=== PATIENT | male | born 1970 | race Caucasian/White ===

== ENCOUNTER 2024-08-01 13:24 | Emergency (ER) | payer BC, SELFPAY ==
[2024-08-01 13:31] VITALS: BP 146/86; PULSE 69; RESP 16; TEMP 36.9; O2SAT 96; BMI 34.5
--- NOTE | 2024-08-01 13:55 | DI.US.S_ITS ---
PROCEDURE: US PERIPH VENOUS LOW EXTREM RT INDICATIONS: r leg pain TECHNIQUE: Real-time imaging, as well as color and pulse Doppler interrogation, were performed of the lower extremity deep veins from the inguinal ligament to the popliteal fossa, with documentation of the visualized calf veins. COMPARISON: None. FINDINGS: The common femoral, femoral, popliteal, and the visualized calf veins are normally compressible, and free of intraluminal thrombus. Color and pulse Doppler demonstrate normal phasic intraluminal flow. There is normal augmentation response to distal compression maneuver. Small free fluid anterior and lateral to the right knee. Calcifications adjacent to the medial knee. IMPRESSION: No findings of lower extremity deep venous thrombosis. Dictated by: Christofer Hernandez M.D. on 08/01/2024 at 15:03 Approved by: Christofer Hernandez M.D. on 08/01/2024 at 15:04
--- NOTE | 2024-08-01 13:58 | ED.EXTPRO ---
HPI - Extremity Problem <Arabella Allred PA-C - Last Filed: 08/01/24 15:54> General Chief complaint: Extremity Problem,Nontraumatic Stated complaint: hx knee surgery, right leg locked up 3 days Time Seen by Provider: 08/01/24 13:37 Source: patient Mode of arrival: Wheelchair History of Present Illness HPI Narrative: 53-year-old male status post a right meniscus repair in February 2024 presents to the ED with 3 days of right-sided leg pain. Patient localizes the pain to the posterior aspect of the leg from just below the knee to just above the knee. Patient denies any trauma. No numbness, tingling, weakness. Patient states he is having trouble straightening his leg due to pain. Patient endorses a distant history of gout about 10 years ago. No history of DVTs. Patient is a prior smoker, has smoked for 40 years. Patient quit smoking 2 years ago, uses nicotine patches currently. Denies chest pain, shortness of breath, recent immobilization, history of cancer. Related Data Previous Rx's Medication Instructions Recorded methylprednisolone 4 mg tablets in See Rx Instructions PO .COMPLEX 08/01/24 a dose pack (Medrol (Jacinto)) #21 ea Allergies Allergy/AdvReac Type Severity Reaction Status Date / Time No Known Drug Allergies Allergy Verified 08/01/24 13:31 Review of Systems <Arabella Allred PA-C - Last Filed: 08/01/24 15:54> Constitutional Constitutional: Denies chills, Denies fatigue, Denies fever(s), Denies frequent falls, Denies lethargy and Denies weakness Eyes Eyes: Denies change in vision, Denies eye discharge, Denies irritation and Denies loss of vision ENT Ears, Nose, Mouth, and Throat: Denies change in voice, Denies dizziness, Denies neck pain, Denies sore throat and Denies throat swelling Cardiovascular Cardiovascular: Denies chest pain, Denies irregular heart rhythm, Denies lightheadedness, Denies palpitations, Denies dyspnea, Denies dyspnea on exertion and Denies orthopnea Respiratory Respiratory: Denies cough, Denies dyspnea, Denies dyspnea on exertion and Denies wheezing Gastrointestinal Gastrointestinal: Denies abdominal pain, Denies change in bowel habits, Denies diarrhea, Denies nausea and Denies vomiting Musculoskeletal Musculoskeletal: Denies neck pain and Denies numbness Comments: Right-sided posterior knee pain Integumentary/Breasts Skin/Breast: Denies pruritus, Denies erythema, Denies rash and Denies wounds Neurologic Neurologic: Denies behavioral changes, Denies confusion, Denies dizziness, Denies frequent falls, Denies loss of vision, Denies numbness and Denies weakness Psychiatric Psychiatric: Denies anxiety, Denies behavioral changes, Denies confusion, Denies depression, Denies homicidal ideation and Denies suicidal ideation Endocrine Endocrine: Denies fatigue, Denies flushing and Denies palpitations Hematologic/Lymphatic Hematologic/Lymphatic: Denies easy bruising Allergic/Immunologic Allergic/Immunologic: Denies urticaria, Denies throat swelling and Denies wheezing Patient History <Arabella Allred PA-C - Last Filed: 08/01/24 15:54> Social History Smoking Status: Former smoker Smoking Status: Former smoker Exam <Arabella Allred PA-C - Last Filed: 08/01/24 15:54> Narrative Exam Narrative: Const General:?cooperative, healthy appearing and comfortable [facility] Head:?normal to inspection Ears:?hearing grossly normal bilaterally Nose:?external nose normal Face and sinus:?normal facial exam and sinuses nontender Mouth:?oral mucosae normal Throat:?posterior oropharynx normal Eyes General:?appearance normal, both eyes and all related structures Neck Neck:?normal visual inspection and no lymphadenopathy noted Resp Effort & Inspection:?normal respiratory effort Auscultation:?clear to auscultation bilaterally Cardio Rate:?regular rate Rhythm:?regular rhythm Musculoskeletal No tenderness to palpation. No swelling, bruising, deformities. Varicose veins noted. Neurovascularly intact. Neuro General:?patient alert, patient awake and patient oriented x3 Initial Vital Signs Initial Vital Signs: Vital Signs Temperature 98.4 F 08/01/24 13:31 Pulse Rate 69 08/01/24 13:31 Respiratory Rate 16 08/01/24 13:31 Blood Pressure 146/86 H 08/01/24 13:31 Pulse Oximetry 96 08/01/24 13:31 Oxygen Delivery Method Room Air 08/01/24 13:31 <Laura Trotter DO - Last Filed: 08/06/24 07:09> Initial Vital Signs Initial Vital Signs: Vital Signs Temperature 98.4 F 08/01/24 13:31 Pulse Rate 69 08/01/24 13:31 Respiratory Rate 16 08/01/24 13:31 Blood Pressure 146/86 H 08/01/24 13:31 Pulse Oximetry 96 08/01/24 13:31 Oxygen Delivery Method Room Air 08/01/24 13:31 Course <Arabella Allred PA-C - Last Filed: 08/01/24 15:54> Orders Ordered: Discontinued Medications Ketorolac Tromethamine (Ketorolac 30 Mg/Ml Vial) 30 mg IM NOW ONE Stop: 08/01/24 13:58 Last Admin: 08/01/24 14:59 Dose: 30 mg Documented By: SANDRA Vital Signs Vital signs: Vital Signs - 8 hr 08/01/24 13:31 08/01/24 15:35 Temperature 98.4 F Pulse Rate 69 54 L Respiratory Rate 16 16 Blood Pressure 146/86 H 152/74 H Pulse Oximetry 96 100 Oxygen Delivery Method Room Air Room Air <Laura Trotter DO - Last Filed: 08/06/24 07:09> Orders Ordered: Discontinued Medications Ketorolac Tromethamine (Ketorolac 30 Mg/Ml Vial) 30 mg IM NOW ONE Stop: 08/01/24 13:58 Last Admin: 08/01/24 14:59 Dose: 30 mg Documented By: SANDRA Vital Signs Vital signs: Vital Signs - 8 hr 08/01/24 13:31 08/01/24 15:35 Temperature 98.4 F Pulse Rate 69 54 L Respiratory Rate 16 16 Blood Pressure 146/86 H 152/74 H Pulse Oximetry 96 100 Oxygen Delivery Method Room Air Room Air MDM - Extremity (Nontraumatic) <Arabella Allred PA-C - Last Filed: 08/01/24 15:54> MDM Narrative Medical decision making narrative: 53-year-old male status post a right meniscus repair in February 2024 presents to the ED with 3 days of right-sided leg pain. Concern for DVT versus fracture/dislocation versus musculoskeletal sprain/strain versus gout versus other. Will obtain ultrasound, x-ray. Will give ketorolac for pain. Will reassess. Ultrasound without evidence of DVT. Small free fluid anterior and lateral to the right knee. This is consistent with patient's pre-existing condition status post his meniscus repair. X-ray without acute osseous abnormality. Prominent soft tissue calcifications along the medial knee. Small knee joint effusion. Counseled patient that his symptoms could either be due to a musculoskeletal sprain/strain versus varicose veins versus other. Prescribed prednisone. Recommend continuing ibuprofen. Recommend follow-up with PCP/vascular. ED return precautions were discussed with patient. Patient verbalized understanding. Medical records reviewed: Yes Discharge Plan Departure Patient Disposition: Home Clinical Impression: Leg pain, right Instructions: DI for Leg Pain Activity Restrictions/Additional Instructions: You were evaluated in the ED today for right-sided leg pain. Your ultrasound and x-ray were normal. It is likely that you either have a musculoskeletal sprain/strain of the leg versus varicose veins that is causing your symptoms. You are being prescribed prednisone for pain. You were given a shot of ketorolac in the ED today. Please continue taking 800 mg of ibuprofen every 8 hours with food. Please follow-up with your PCP as soon as possible. Return to the ED if you have worsening symptoms, chest pain, shortness of breath. Prescriptions: New methylprednisolone [Medrol (Jacinto)] 4 mg tablets,dose pack See Rx Instructions .ROUTE .COMPLEX Qty: 21 0RF Rx Instructions: for 6 days Stand Alone Forms: Patient Portal/API/Survey ED Sign-out <Laura Trotter DO - Last Filed: 08/06/24 07:09> Cosign ED Attending Cosmaykelature Attestation: I was immediately available in the department for consultation.
--- NOTE | 2024-08-01 14:07 | DI.RAD.S_ITS ---
PROCEDURE: XR KNEE RT 3V INDICATIONS: leg pain TECHNIQUE: 3 views of the knee were acquired. COMPARISON: None. FINDINGS: Bones: No fractures or dislocations. Mild degenerative changes of the knee. No suspicious bony lesions. Soft tissues: Small joint effusion. Prominent soft tissue calcifications along the medial knee. No suspicious soft tissue calcifications. IMPRESSION: No acute osseous abnormality. Prominent soft tissue calcifications along the medial knee. Small knee joint effusion. If pain persists with conservative management, consider repeat x-ray in 10-14 days or cross-sectional imaging. Dictated by: Christofer Hernandez M.D. on 08/01/2024 at 15:04 Approved by: Christofer Hernandez M.D. on 08/01/2024 at 15:06
[2024-08-01] MEDS: KETOROLAC 30 MG/ML VIAL IM (14:59)
[2024-08-01 15:35] VITALS: BP 152/74; PULSE 54; RESP 16; O2SAT 100
== END 2024-08-01 15:41 | disposition home or self-care (01) ==
PROVIDERS: Emergency Provider Student in an Organized Health Care Education/Training Program
DX: M79.604 Pain in right leg (principal)
CPT/HCPCS: 73562; 93971; 96372; 99283; J1885